=== PATIENT | male | born 1945 | race Caucasian/White ===

== ENCOUNTER 2019-02-03 09:58 | Day surgery (SDC) | payer BC, MEDICARE ==
[~2019-02-03 09:58] MED LIST: ALPR0.5T8 PO; AMLO1CAP9 PO; AMLO5TAB PO; ASPI-611 PO; CALC0.253 PO; CARV25TA PO; CHOL5000 PO; CLOP75TA33 PO; CYCL-1 PO; FE F PO; FENO145T38 PO; FLO0.4C PO; FURO40TA4 PO; HYDR-4353 PO; LANTUS SQ; SIMV40TA PO
== END 2019-02-03 12:08 | disposition home or self-care (01) ==
LOC: WOUND CARE 09:58
PROVIDERS: ATTEND Surgery
DX: T87.89 Other complications of amputation stump (principal); E11.621 Type 2 diabetes mellitus with foot ulcer; L97.521 Non-pressure chronic ulcer of other part of left foot limited to breakdown of skin; I25.10 Atherosclerotic heart disease of native coronary artery without angina pectoris; I25.2 Old myocardial infarction; E11.69 Type 2 diabetes mellitus with other specified complication; M86.8X7 Other osteomyelitis, ankle and foot; E11.42 Type 2 diabetes mellitus with diabetic polyneuropathy; E11.22 Type 2 diabetes mellitus with diabetic chronic kidney disease; I12.9 Hypertensive chronic kidney disease with stage 1 through stage 4 chronic kidney disease, or unspecified chronic kidney disease; N18.4 Chronic kidney disease, stage 4 (severe); Z86.73 Personal history of transient ischemic attack (TIA), and cerebral infarction without residual deficits; Z95.1 Presence of aortocoronary bypass graft; Y83.5 Amputation of limb(s) as the cause of abnormal reaction of the patient, or of later complication, without mention of misadventure at the time of the procedure
CPT/HCPCS: 36416; 82948; 97597; A6222; A6021; A6206

== ENCOUNTER 2019-02-26 10:30 | Outpatient (CLI) | payer BC, MEDICARE ==
--- NOTE | 2019-02-26 12:00 | NUR ---
Patient ambulated independently from [facility] and was admitted to outpatient wound care for physician visit with Francisco Hopkins MD. Dressing removed, wound cleansed. Patient assessed for changes in condition or medical history. 1120 - Dr. Hopkins at bedside accompanied by RN. Wound assessed by and is declared healed. Plan of care discussed with patient. Dressings placed per MD orders. Patient discharged from the wound clinic to follow up on an as needed basis. Patient instructed on the signs and symptoms of infection and to call the Wound Center if any occur or to go to the ED if we are closed: Increased pain in wound Increase in drainage from the wound Redness in the skin surrounding the wound Bleeding from the wound Temperature of 101 or greater Patient instructed that the weight of their body puts a large amount of pressure on their wounds. This pressure keeps the new tissue from growing and inhibits new blood vessels from forming. Explained that, if they continue to bear weight on a body part that has a wound, the time it takes to heal the wound increases, the wound may get worse or the wound may not heal at all. Patient verbalized understanding of all discharge instructions and plan of care and ambulated independently out to [facility] in stable condition with no sign or symptom of distress at time of discharge.
== END 2019-02-26 11:27 | disposition home or self-care (01) ==
LOC: WOUND CARE 10:30 → EDSTATUS 10:30 → WOUND CARE 11:27
PROVIDERS: ATTEND Surgery
DX: E11.621 Type 2 diabetes mellitus with foot ulcer (principal); L97.522 Non-pressure chronic ulcer of other part of left foot with fat layer exposed; I25.10 Atherosclerotic heart disease of native coronary artery without angina pectoris; I25.2 Old myocardial infarction; E11.69 Type 2 diabetes mellitus with other specified complication; M86.8X7 Other osteomyelitis, ankle and foot; E11.42 Type 2 diabetes mellitus with diabetic polyneuropathy; E11.22 Type 2 diabetes mellitus with diabetic chronic kidney disease; I12.9 Hypertensive chronic kidney disease with stage 1 through stage 4 chronic kidney disease, or unspecified chronic kidney disease; N18.4 Chronic kidney disease, stage 4 (severe); Z86.73 Personal history of transient ischemic attack (TIA), and cerebral infarction without residual deficits; Z95.1 Presence of aortocoronary bypass graft
CPT/HCPCS: A4414; G0463

== ENCOUNTER 2019-08-26 19:42 | Emergency (ER) | payer BC, MEDICARE ==
[~2019-08-26] VITALS: Ht 177.8 cm; Wt 90.0 kg
[~2019-08-26 19:42] MED LIST changes: +AMLO-101 PO; -AMLO1CAP9 PO
[2019-08-26 20:03] VITALS: BP 154/78
--- NOTE | 2019-08-26 20:11 | NUR ---
AFTER PATIENT SAW HIS VITALS, THE PATIENT STATED HE WANTED TO GO HOME AND RETURN IF HE HAD ANY MORE PROBLEMS. NAD ACUT DISTRESS. PATIENT WAS ADVISED THAT WE ARE MORE THAN HAPPY TO SEE HIM.
== END 2019-08-26 20:55 | disposition left against medical advice (07) ==
LOC: ER 19:43
DX: R10.30 Lower abdominal pain, unspecified (principal); Z53.21 Procedure and treatment not carried out due to patient leaving prior to being seen by health care provider

== ENCOUNTER 2020-02-15 00:26 | Emergency (ER) | payer BC, MEDICARE ==
[~2020-02-15] VITALS: Ht 177.8 cm; Wt 90.0 kg
[2020-02-15] MEDS ORDERED: TETanus/Pertussis (Acell)/Diphther VAC/PF (Tdap-Adult) 0.5ml syringe IMVAC ONE (00:30)
[2020-02-15] MEDS ORDERED: LIDOcaine 1% W/epiNEPHrine 1:200,000 10ml vial IJ ONE (00:30)
[2020-02-15 00:45] VITALS: BP 146/69
== END 2020-02-15 02:56 | disposition home or self-care (01) ==
LOC: ER 00:26
DX: S01.81XA Laceration without foreign body of other part of head, initial encounter (principal); S06.0X0A Concussion without loss of consciousness, initial encounter; I25.10 Atherosclerotic heart disease of native coronary artery without angina pectoris; I10 Essential (primary) hypertension; I25.2 Old myocardial infarction; E11.9 Type 2 diabetes mellitus without complications; G89.29 Other chronic pain; Z98.61 Coronary angioplasty status; Z95.1 Presence of aortocoronary bypass graft; Z98.890 Other specified postprocedural states; Z91.041 Radiographic dye allergy status; Z79.82 Long term (current) use of aspirin; Z79.4 Long term (current) use of insulin; Z79.899 Other long term (current) drug therapy; W19.XXXA Unspecified fall, initial encounter; Y93.89 Activity, other specified; Y92.89 Other specified places as the place of occurrence of the external cause; Y99.8 Other external cause status
CPT/HCPCS: 12013; 70450; 70486; 72125; 90471; 90715; 99285

== ENCOUNTER 2020-02-17 10:27 | Inpatient (IN) | payer MEDICARE, BC ==
--- NOTE | 2020-02-16 18:00 | NUR ---
Patient in room PCU 3023. I have received report from Bianca NESS and had the opportunity to ask questions and assume patient care.
[~2020-02-17] VITALS: Ht 177.8 cm; Wt 95.6 kg
[2020-02-17] MEDS: clopidogrel 75mg tablet PO SCH (08:00)
[2020-02-17 10:57] LABS: BASOPHILS % (AUTO) 0.7 % (0-1); EOSINOPHILS % (AUTO) 0.5 % (0-6); HEMATOCRIT 33.8 % (42.0-52.0); HEMOGLOBIN 10.9 g/dl (14.0-17.9); LYMPHOCYTES # (AUTO) 0.3 X10'3 (1.1-4.8); LYMPHOCYTES % (AUTO) 5.1 % (21-51); MEAN CORPUSCULAR HEMOGLOBIN 31.8 PG (27.0-31.0); MEAN CORPUSCULAR HGB CONC 32.3 g/dL (33.0-36.5); MEAN CORPUSCULAR VOLUME 98.3 FL (78-98); MEAN PLATELET VOLUME 7.5 FL (7.4-10.4); MONOCYTES # (AUTO) 0.6 X10'3 (0-0.9); MONOCYTES % (AUTO) 9.4 % (2-12); NEUTROPHILS # (AUTO) 5.8 X10'3 (1.8-7.7); NEUTROPHILS % (AUTO) 84.3 % (42-75); PLATELET COUNT 237 X10'3 (140-440); RED BLOOD COUNT 3.44 X10'6 (4.70-6.10); RED CELL DISTRIBUTION WIDTH 16.3 % (11.5-14.5); WHITE BLOOD COUNT 6.9 X10'3 (4.5-11.0)
[2020-02-17 11:06] LABS: PARTIAL THROMBOPLASTIN TIME 36 SECONDS (22-32)
[2020-02-17 11:07] LABS: ALANINE AMINOTRANSFERASE 16 U/L (12-78); ALBUMIN 3.8 G/DL (3.4-5.0); ALKALINE PHOSPHATASE 42 IU/L (46-116); ANION GAP 7 (8-16); ASPARTATE AMINO TRANSFERASE 26 U/L (10-37); BILIRUBIN,TOTAL 0.5 MG/DL (0.1-1.0); BLOOD UREA NITROGEN 23 MG/DL (7-18); BUN/CREATININE RATIO 6.9 (5.4-32.0); CALCIUM 8.8 MG/DL (8.5-10.1); CHLORIDE 97 MMOL/L (99-107); CREATININE 3.35 MG/DL (0.60-1.10); GLUCOSE 147 MG/DL (70-104); POTASSIUM 4.7 MMOL/L (3.5-5.1); SODIUM 136 MMOL/L (135-145); TOTAL CARBON DIOXIDE 31.8 MMOL/L (24-32); TOTAL PROTEIN 7.5 G/DL (6.4-8.2); eGFR 18 ML/MIN
[2020-02-17] MEDS ORDERED: ondansetron/PF 4mg/2ml inj IV PRN (12:20)
[2020-02-17] MEDS ORDERED: bisacodyl 10mg suppository rectal RC PRN (12:20)
[2020-02-17] MEDS ORDERED: acetaminophen 325mg tablet PO PRN (12:20)
[2020-02-17] MEDS ORDERED: diphenhydrAMINE 25mg capsule PO PRN (12:20)
[2020-02-17] MEDS ORDERED: CALC667C5 PO (12:30)
[2020-02-17] MEDS ORDERED: OMEG10006 PO (12:34)
[2020-02-17] MEDS ORDERED: FURO-150 PO (12:35)
[2020-02-17] MEDS ORDERED: CITA10TA14 PO (12:52)
[2020-02-17] MEDS ORDERED: LIDO700A47 TD (12:52)
[2020-02-17] MEDS ORDERED: ALBU2.5V10 IH (12:54)
[2020-02-17] MEDS ORDERED: FLUT12AE9 IH (12:54)
[2020-02-17] MEDS ORDERED: INSU100I31 SQ (12:54)
[2020-02-17] MEDS ORDERED: TRAZ-251 PO (12:54)
--- NOTE | 2020-02-17 13:23 | NUR ---
Pt attempted to obtain a urine sample. Pt was not able to at this time. Pt states, "I don't make a lot of urine because of my dialysis and since I just had it, it will take a little bit to make urine."
--- NOTE | 2020-02-17 14:00 | NUR ---
Left a message for Dr Morneo to call the ED regarding the pt.
[2020-02-17] MEDS ORDERED: albuterol 2.5 MG/3 ML nebule NEB PRN (14:10)
--- NOTE | 2020-02-17 14:40 | NUR ---
Spoke with Dr Moreno regarding pt unable to lie flat for VQ scan. He said we will hold it for now until we get more tests back. Nucular med is aware.
[2020-02-17 16:44] VITALS: BP 135/78
[2020-02-17 18:00] VITALS: BP 120/60
--- NOTE | 2020-02-17 18:29 | NUR ---
Problems reprioritized. Patient report given, questions answered & plan of care reviewed with Braden RN].
[2020-02-17] MEDS: amLODIPine 5mg tablet PO SCH (19:41)
[2020-02-17] MEDS: tamsulosin 0.4mg capsule PO SCH (19:41)
[2020-02-17] MEDS: docusate sod 100mg capsule PO SCH (19:41)
[2020-02-17] MEDS: carVEDilol 12.5mg tablet PO SCH (19:41)
[2020-02-17] MEDS: calcium acetate 667mg (PhosLO) capsule PO SCH (19:41)
[2020-02-17] MEDS: heparin, porcine 5000 units/ml vial SQ SCH (19:42)
[2020-02-17] MEDS ORDERED: non-formulary drug (Amlodipine Besylate/Benazepril (Amlodipine-Benazepril 5-20 mg) 1 CAP) PO SCH (20:00)
[2020-02-17] MEDS: insulin glargine (Lantus) pen - multi-dose SQ SCH (21:00)
[2020-02-17] MEDS: acetaminophen 325mg tablet PO PRN (21:40)
[2020-02-17] MEDS: fluticasone nasal spray 16GM bottle NS SCH (21:41)
[2020-02-17 22:00] VITALS: BP 138/57
--- NOTE | 2020-02-18 00:02 | NUR ---
Non administered Plavix dose from yesterday morning. Unaware if patient had received the dose or not.
[2020-02-18 02:00] VITALS: BP 139/56
[2020-02-18 06:06] LABS: BASOPHILS # (AUTO) 0.1 X10'3 (0-0.2); BASOPHILS % (AUTO) 0.9 % (0-1); EOSINOPHILS # (AUTO) 0.1 X10'3 (0-0.9); EOSINOPHILS % (AUTO) 1.3 % (0-6); HEMATOCRIT 33.9 % (42.0-52.0); HEMOGLOBIN 10.6 g/dl (14.0-17.9); LYMPHOCYTES # (AUTO) 0.3 X10'3 (1.1-4.8); LYMPHOCYTES % (AUTO) 5.6 % (21-51); MEAN CORPUSCULAR HEMOGLOBIN 30.7 PG (27.0-31.0); MEAN CORPUSCULAR HGB CONC 31.4 g/dL (33.0-36.5); MEAN CORPUSCULAR VOLUME 97.6 FL (78-98); MEAN PLATELET VOLUME 7.7 FL (7.4-10.4); MONOCYTES # (AUTO) 0.7 X10'3 (0-0.9); MONOCYTES % (AUTO) 11.4 % (2-12); NEUTROPHILS # (AUTO) 4.8 X10'3 (1.8-7.7); NEUTROPHILS % (AUTO) 80.8 % (42-75); PLATELET COUNT 221 X10'3 (140-440); RED BLOOD COUNT 3.47 X10'6 (4.70-6.10); RED CELL DISTRIBUTION WIDTH 16.3 % (11.5-14.5); WHITE BLOOD COUNT 5.9 X10'3 (4.5-11.0)
[2020-02-18 06:17] LABS: ALANINE AMINOTRANSFERASE 12 U/L (12-78); ALBUMIN 3.7 G/DL (3.4-5.0); ALBUMIN/GLOBULIN RATIO 1.1 (1.1-1.5); ALKALINE PHOSPHATASE 35 IU/L (46-116); ANION GAP 7 (8-16); ASPARTATE AMINO TRANSFERASE 22 U/L (10-37); BILIRUBIN,TOTAL 0.5 MG/DL (0.1-1.0); BLOOD UREA NITROGEN 34 MG/DL (7-18); BUN/CREATININE RATIO 6.9 (5.4-32.0); CHLORIDE 95 MMOL/L (99-107); CREATININE 4.92 MG/DL (0.60-1.10); GLUCOSE 126 MG/DL (70-104); MAGNESIUM 2.3 MG/DL (1.5-2.4); POTASSIUM 5.1 MMOL/L (3.5-5.1); SODIUM 131 MMOL/L (135-145); TOTAL CARBON DIOXIDE 29.4 MMOL/L (24-32); TOTAL PROTEIN 7.2 G/DL (6.4-8.2); eGFR 12 ML/MIN
--- NOTE | 2020-02-18 06:26 | NUR ---
Problems reprioritized. Patient report given, questions answered & plan of care reviewed with Cristine NESS.
--- NOTE | 2020-02-18 06:37 | NUR ---
Patient in room PCU 3023. I have received report from GROVER Feliciano and had the opportunity to ask questions and assume patient care.
[2020-02-18 07:00] VITALS: BP 126/46
[2020-02-18] MEDS: fluticasone nasal spray 16GM bottle NS SCH ×2 (08:13→19:59)
[2020-02-18] MEDS: docusate sod 100mg capsule PO SCH ×2 (08:13→20:00)
[2020-02-18] MEDS: OMEGA-3/DHA/EPA/FISH OIL 1 EACH CAPSULE.DR PO SCH (08:13)
[2020-02-18] MEDS: heparin, porcine 5000 units/ml vial SQ SCH ×2 (08:13→19:59)
[2020-02-18] MEDS: clopidogrel 75mg tablet PO SCH (08:14)
[2020-02-18] MEDS: carVEDilol 12.5mg tablet PO SCH ×2 (08:14→19:59)
[2020-02-18] MEDS: atorvastatin 20mg tablet PO SCH (08:14)
[2020-02-18] MEDS: calcium acetate 667mg (PhosLO) capsule PO SCH ×3 (08:15→18:05)
[2020-02-18] MEDS: aspirin 81mg tablet.DR PO SCH (08:15)
[2020-02-18] MEDS: furosemide 20MG tablet PO SCH (08:15)
[2020-02-18] MEDS: fenofibrate 145mg tablet PO SCH (08:15)
[2020-02-18] MEDS: amLODIPine 5mg tablet PO SCH ×2 (08:15→20:00)
[2020-02-18] MEDS: tamsulosin 0.4mg capsule PO SCH ×2 (08:16→19:59)
[2020-02-18 09:14] LABS: CLARITY,URINE SLIGHTLY CLOUDY (Clear); COLOR,URINE YELLOW (Yellow); GLUCOSE, URINE NEGATIVE (Neg); KETONES,URINE TRACE mg/dl (Neg); LEUKOCYTE ESTERASE ,URINE NEGATIVE (Neg); NITRITES, URINE NEGATIVE (Neg); OCCULT BLOOD,URINE NEGATIVE (Neg); PROTEIN,URINE 100 mg/dl (Neg); UROBILINOGEN,URINE 0.2 E.U/dL (0.2-1.0)
[2020-02-18 09:15] LABS: UA COLLECTION TYPE VOIDED
[2020-02-18 09:17] LABS: MUCUS STRANDS FEW /LPF (Neg); SQUAMOUS EPITHELIAL CELL,UR FEW /LPF (FEW)
[2020-02-18 09:18] LABS: WBC,URINE 0-4 /HPF (0-4)
[2020-02-18 09:19] LABS: BACTERIA,URINE 2+ /HPF (Neg)
[2020-02-18 09:20] LABS: COARSE GRANULAR CAST 0-3 /LPF (NEGATIVE); RBC,URINE 0-2 /HPF (0-2); TRANSITIONAL EPI CELLS,URINE FEW /HPF
[2020-02-18 11:00] VITALS: BP 135/49
--- NOTE | 2020-02-18 15:43 | NUR ---
Awaiting results from Nikhil PAGER ID: [phone] MESSAGE: Patient Dar Chavez9. UA results are in. Cristine LOUIS [phone] Addendum: 02/18/20 at 1657 by Cristine Fuentes RN in error
[2020-02-18] MEDS: acetaminophen 325mg tablet PO PRN (16:55)
--- NOTE | 2020-02-18 16:57 | NUR ---
O2 Sat at rest on room air:_87__% If below 89%: Recovery O2 Sat at rest on _2 __LPM:_96__%:___% via nasal cannula (mask/nasal cannula, etc..) No further documentation is necessary. If O2 Sat did not drop below 89% on room air,ambulate patient on room air. O2 Sat while ambulating on room air:___% Recovery O2 Sat while ambulating on ___LPM:___% No further documentation is necessary. If patient does not drop below 89% while ambulating, he/she does not qualify for home O2.
[2020-02-18] MEDS: HYDROcodone/acetaminophen 10/325mg tab PO PRN (18:06)
--- NOTE | 2020-02-18 18:41 | NUR ---
Problems reprioritized. Patient report given, questions answered & plan of care reviewed with Chelly NESS. Patient stable at transfer of care.
[2020-02-18 20:02] VITALS: BP 146/54
[2020-02-18] MEDS ORDERED: MESSAGE TO PHARMACY PO ONE (21:40)
[2020-02-18] MEDS ORDERED: insulin Lispro (HumaLOG) vial - multi-dose SQ SCH (21:40)
[2020-02-18] MEDS ORDERED: glucagon, human recombinant 1mg kit SUBCUT PRN (21:40)
[2020-02-18] MEDS ORDERED: dextrose 50%-water 50ml dispensing syringe IV PRN ×2 (21:40)
[2020-02-18] MEDS ORDERED: dextrose ORAL solution 15 GM/59 ML bottle PO PRN ×2 (21:40)
[2020-02-18] MEDS: insulin glargine (Lantus) pen - multi-dose SQ SCH (21:51)
[2020-02-18 22:00] VITALS: BP 137/53
[2020-02-18 22:25] LABS: HEMOGLOBIN A1C 6.6 % (4.5-6.2)
[2020-02-19] VITALS (7 sets, daily range): BP systolic 119–152; BP diastolic 53–82
[2020-02-19 06:11] LABS: ALANINE AMINOTRANSFERASE 15 U/L (12-78); ALBUMIN 3.7 G/DL (3.4-5.0); ALKALINE PHOSPHATASE 42 IU/L (46-116); ANION GAP 5 (8-16); ASPARTATE AMINO TRANSFERASE 18 U/L (10-37); BASOPHILS % (AUTO) 0.7 % (0-1); BILIRUBIN,TOTAL 0.4 MG/DL (0.1-1.0); BLOOD UREA NITROGEN 45 MG/DL (7-18); BUN/CREATININE RATIO 7.7 (5.4-32.0); CALCIUM 9.2 MG/DL (8.5-10.1); CHLORIDE 95 MMOL/L (99-107); CREATININE 5.88 MG/DL (0.60-1.10); EOSINOPHILS # (AUTO) 0.1 X10'3 (0-0.9); EOSINOPHILS % (AUTO) 1.9 % (0-6); GLUCOSE 122 MG/DL (70-104); HEMATOCRIT 34.4 % (42.0-52.0); HEMOGLOBIN 10.9 g/dl (14.0-17.9); LYMPHOCYTES # (AUTO) 0.3 X10'3 (1.1-4.8); LYMPHOCYTES % (AUTO) 6.7 % (21-51); MAGNESIUM 2.5 MG/DL (1.5-2.4); MEAN CORPUSCULAR HEMOGLOBIN 30.5 PG (27.0-31.0); MEAN CORPUSCULAR HGB CONC 31.6 g/dL (33.0-36.5); MEAN CORPUSCULAR VOLUME 96.5 FL (78-98); MEAN PLATELET VOLUME 7.4 FL (7.4-10.4); MONOCYTES # (AUTO) 0.6 X10'3 (0-0.9); MONOCYTES % (AUTO) 11.7 % (2-12); PHOSPHORUS 5.5 MG/DL (2.3-4.5); PLATELET COUNT 213 X10'3 (140-440); POTASSIUM 4.8 MMOL/L (3.5-5.1); RED BLOOD COUNT 3.57 X10'6 (4.70-6.10); RED CELL DISTRIBUTION WIDTH 16.1 % (11.5-14.5); SODIUM 130 MMOL/L (135-145); TOTAL CARBON DIOXIDE 30.2 MMOL/L (24-32); TOTAL PROTEIN 7.3 G/DL (6.4-8.2); WHITE BLOOD COUNT 5.1 X10'3 (4.5-11.0); eGFR 9 ML/MIN
--- NOTE | 2020-02-19 06:25 | NUR ---
Patient in room PCU 3023. I have received report from GROVER Spaulding and had the opportunity to ask questions and assume patient care.
--- NOTE | 2020-02-19 06:27 | NUR ---
Problems reprioritized. Patient report given, questions answered & plan of care reviewed with GROVER Vergara.
[2020-02-19] MEDS: carVEDilol 12.5mg tablet PO SCH ×2 (07:43→19:23)
[2020-02-19] MEDS: fenofibrate 145mg tablet PO SCH (07:43)
[2020-02-19] MEDS: clopidogrel 75mg tablet PO SCH (07:43)
[2020-02-19] MEDS: aspirin 81mg tablet.DR PO SCH (07:43)
[2020-02-19] MEDS: OMEGA-3/DHA/EPA/FISH OIL 1 EACH CAPSULE.DR PO SCH (07:43)
[2020-02-19] MEDS: tamsulosin 0.4mg capsule PO SCH ×2 (07:44→19:30)
[2020-02-19] MEDS: amLODIPine 5mg tablet PO SCH ×2 (07:44→19:24)
[2020-02-19] MEDS: atorvastatin 20mg tablet PO SCH (07:44)
[2020-02-19] MEDS: furosemide 20MG tablet PO SCH (07:44)
[2020-02-19] MEDS: calcium acetate 667mg (PhosLO) capsule PO SCH ×3 (07:44→19:00)
[2020-02-19] MEDS: fluticasone nasal spray 16GM bottle NS SCH ×2 (07:45→19:30)
[2020-02-19] MEDS ORDERED: normal saline 1000ml 250 ML IV PRN (08:00)
[2020-02-19] MEDS ORDERED: heparin 1,000 units/ml 10ml inj IV ONE (08:00)
[2020-02-19] MEDS ORDERED: epoetin 20,000 units/ml inj IV ONE (08:00)
[2020-02-19] MEDS ORDERED: LIDOcaine 1% (10mg/ml) 2ml vial SQ ONE (08:00)
[2020-02-19] MEDS: docusate sod 100mg capsule PO SCH ×2 (08:07→19:23)
--- NOTE | 2020-02-19 08:08 | NUR ---
Administered colace but did not scan medication bar code.
--- NOTE | 2020-02-19 18:04 | NUR ---
Problems reprioritized. Patient report given, questions answered & plan of care reviewed with GROVER Spaulding.
[2020-02-19] MEDS: HYDROcodone/acetaminophen 10/325mg tab PO PRN (19:34)
--- NOTE | 2020-02-19 20:03 | NUR ---
Pt is stable to be discharge per MD. Pt is stable. VS : 144/54, 77 bpm, 91% O2 sat RA, 20 respiration. All belongings were with the pt. Tele monitor and IV access were discontinued. Pt was wheeled down to the lobby by staff, and he was picked up by his brother.
== END 2020-02-19 20:05 | disposition home or self-care (01) | DRG 70 ==
LOC: ER 10:28 → ED HOLD 12:25 → PCU 3S 16:35
PROC: CB121ZZ Planar Nuclear Medicine Imaging of Lungs and Bronchi using Technetium 99m (Tc-99m) (ICD-10-PCS; 2020-02-18)
PROC: 5A1D70Z Performance of Urinary Filtration, Intermittent, Less than 6 Hours Per Day (ICD-10-PCS; principal; 2020-02-19)
DX: G93.41 Metabolic encephalopathy (principal); N18.6 End stage renal disease; N25.81 Secondary hyperparathyroidism of renal origin; I12.0 Hypertensive chronic kidney disease with stage 5 chronic kidney disease or end stage renal disease; R09.02 Hypoxemia; E11.22 Type 2 diabetes mellitus with diabetic chronic kidney disease; D64.9 Anemia, unspecified; G89.29 Other chronic pain; M54.9 Dorsalgia, unspecified; E78.5 Hyperlipidemia, unspecified; I25.10 Atherosclerotic heart disease of native coronary artery without angina pectoris; I27.20 Pulmonary hypertension, unspecified; R29.6 Repeated falls; Z79.51 Long term (current) use of inhaled steroids; Z79.82 Long term (current) use of aspirin; I25.2 Old myocardial infarction; Z79.899 Other long term (current) drug therapy; Z86.73 Personal history of transient ischemic attack (TIA), and cerebral infarction without residual deficits; Z87.891 Personal history of nicotine dependence; Z95.1 Presence of aortocoronary bypass graft; Z99.2 Dependence on renal dialysis; Z91.041 Radiographic dye allergy status; Z79.01 Long term (current) use of anticoagulants; Z79.1 Long term (current) use of non-steroidal anti-inflammatories (NSAID); Z80.9 Family history of malignant neoplasm, unspecified; Z79.4 Long term (current) use of insulin
CPT/HCPCS: 36415; 70450; 71045; 78582; 78707; 80053; 81001; 82948; 83036; 83735; 83880; 84100; 85025; 85379; 85610; 85730; 87081; 93005; 93306; 93970; 94760; 97110; 97161; 97530; 99285; A9539; A9540; A9562; G0378; J1644; J1815; Q4081

== ENCOUNTER 2020-03-03 14:13 | Emergency (ER) | payer MEDICARE, BC ==
[~2020-03-03] VITALS: Ht 177.8 cm; Wt 90.9 kg
[~2020-03-03 14:13] MED LIST changes: +ALBU2.5V10 IH; -ALPR0.5T8 PO; -AMLO5TAB PO; -CALC0.253 PO; +CALC667C5 PO; -CHOL5000 PO; -CYCL-1 PO; -FE F PO; +FLUT12AE9 IH; +FURO-150 PO; -FURO40TA4 PO; +INSU100I31 SQ; -LANTUS SQ; +LIDO700A47 TD; +OMEG10006 PO
[2020-03-03 14:17] VITALS: BP 142/59
== END 2020-03-03 17:03 | disposition home or self-care (01) ==
LOC: ER 14:13
DX: N43.3 Hydrocele, unspecified (principal); N50.89 Other specified disorders of the male genital organs; N48.89 Other specified disorders of penis; I25.10 Atherosclerotic heart disease of native coronary artery without angina pectoris; I25.2 Old myocardial infarction; I12.0 Hypertensive chronic kidney disease with stage 5 chronic kidney disease or end stage renal disease; E11.22 Type 2 diabetes mellitus with diabetic chronic kidney disease; N18.6 End stage renal disease; Z86.73 Personal history of transient ischemic attack (TIA), and cerebral infarction without residual deficits; Z86.2 Personal history of diseases of the blood and blood-forming organs and certain disorders involving the immune mechanism; Z99.2 Dependence on renal dialysis; G89.29 Other chronic pain; Z98.890 Other specified postprocedural states; Z88.8 Allergy status to other drugs, medicaments and biological substances; Z79.82 Long term (current) use of aspirin; Z79.4 Long term (current) use of insulin; Z79.899 Other long term (current) drug therapy
CPT/HCPCS: 76870; 99284

== ENCOUNTER 2020-03-08 10:08 | Day surgery (SDC) | payer MEDICARE, BC ==
[2020-03-08] MEDS ORDERED: LIDOcaine 2% 5ml jelly ONE (10:36)
== END 2020-03-08 11:45 | disposition home or self-care (01) ==
LOC: WOUND CARE 10:08
PROVIDERS: ATTEND Nurse Practitioner
DX: E11.621 Type 2 diabetes mellitus with foot ulcer (principal); L97.512 Non-pressure chronic ulcer of other part of right foot with fat layer exposed; I25.10 Atherosclerotic heart disease of native coronary artery without angina pectoris; I25.2 Old myocardial infarction; E11.69 Type 2 diabetes mellitus with other specified complication; M86.8X7 Other osteomyelitis, ankle and foot; E11.42 Type 2 diabetes mellitus with diabetic polyneuropathy; E11.22 Type 2 diabetes mellitus with diabetic chronic kidney disease; I12.0 Hypertensive chronic kidney disease with stage 5 chronic kidney disease or end stage renal disease; N18.6 End stage renal disease; G89.29 Other chronic pain; M54.9 Dorsalgia, unspecified; E78.5 Hyperlipidemia, unspecified; N25.81 Secondary hyperparathyroidism of renal origin; Z86.73 Personal history of transient ischemic attack (TIA), and cerebral infarction without residual deficits; Z95.1 Presence of aortocoronary bypass graft; Z99.2 Dependence on renal dialysis; Z79.4 Long term (current) use of insulin; Z79.82 Long term (current) use of aspirin; Z79.899 Other long term (current) drug therapy; Z98.890 Other specified postprocedural states; Z86.2 Personal history of diseases of the blood and blood-forming organs and certain disorders involving the immune mechanism; Z79.01 Long term (current) use of anticoagulants; Z79.51 Long term (current) use of inhaled steroids; Z79.1 Long term (current) use of non-steroidal anti-inflammatories (NSAID); Z87.891 Personal history of nicotine dependence; Z98.61 Coronary angioplasty status
CPT/HCPCS: 36416; 73620; 82948; 87070; 87075; 87077; 87102; 87186; 97597

== ENCOUNTER 2020-03-12 09:40 | Day surgery (SDC) | payer BC, MEDICARE | END 2020-03-12 11:57 | disposition home or self-care (01) | LOC: WOUND CARE 09:40 | PROVIDERS: ATTEND Nurse Practitioner | DX: E11.621 Type 2 diabetes mellitus with foot ulcer (principal); L97.512 Non-pressure chronic ulcer of other part of right foot with fat layer exposed; I25.10 Atherosclerotic heart disease of native coronary artery without angina pectoris; I25.2 Old myocardial infarction; E11.69 Type 2 diabetes mellitus with other specified complication; M86.8X7 Other osteomyelitis, ankle and foot; E11.42 Type 2 diabetes mellitus with diabetic polyneuropathy; E11.22 Type 2 diabetes mellitus with diabetic chronic kidney disease; I12.0 Hypertensive chronic kidney disease with stage 5 chronic kidney disease or end stage renal disease; N18.6 End stage renal disease; G89.29 Other chronic pain; M54.9 Dorsalgia, unspecified; E78.5 Hyperlipidemia, unspecified; N25.81 Secondary hyperparathyroidism of renal origin; Z86.73 Personal history of transient ischemic attack (TIA), and cerebral infarction without residual deficits; Z95.1 Presence of aortocoronary bypass graft; Z99.2 Dependence on renal dialysis; Z79.4 Long term (current) use of insulin; Z79.82 Long term (current) use of aspirin; Z79.899 Other long term (current) drug therapy; Z98.890 Other specified postprocedural states; Z86.2 Personal history of diseases of the blood and blood-forming organs and certain disorders involving the immune mechanism; Z79.01 Long term (current) use of anticoagulants; Z79.51 Long term (current) use of inhaled steroids; Z79.1 Long term (current) use of non-steroidal anti-inflammatories (NSAID); Z87.891 Personal history of nicotine dependence; Z98.61 Coronary angioplasty status | CPT/HCPCS: 36416; 82948; 93922; 93925; 97597 ==

== ENCOUNTER 2020-03-19 10:10 | Day surgery (SDC) | payer MEDICARE, BC ==
[2020-03-19] MEDS ORDERED: LIDOcaine 2% 5ml jelly ONE (10:38)
[2020-03-19 11:15] LABS: BASOPHILS # (AUTO) 0.1 X10'3 (0-0.2); EOSINOPHILS % (AUTO) 1.1 % (0-6); LYMPHOCYTES # (AUTO) 0.2 X10'3 (1.1-4.8); LYMPHOCYTES % (AUTO) 4.4 % (21-51); MEAN CORPUSCULAR HEMOGLOBIN 30.6 PG (27.0-31.0); MEAN CORPUSCULAR HGB CONC 32.1 g/dL (33.0-36.5); MEAN CORPUSCULAR VOLUME 95.2 FL (78-98); MEAN PLATELET VOLUME 7.6 FL (7.4-10.4); MONOCYTES # (AUTO) 0.5 X10'3 (0-0.9); MONOCYTES % (AUTO) 11.7 % (2-12); NEUTROPHILS # (AUTO) 3.2 X10'3 (1.8-7.7); NEUTROPHILS % (AUTO) 80.8 % (42-75); PRE OP HEMATOCRIT 35.4 % (42.0-52.0); PRE OP HEMOGLOBIN 11.4 g/dL (14.0-17.9); PRE OP PLATELET COUNT 154 X10'3 (140-440); RED BLOOD COUNT 3.72 X10'6 (4.70-6.10)
[2020-03-19 11:39] LABS: ALBUMIN 3.1 G/DL (3.4-5.0); ALBUMIN/GLOBULIN RATIO 0.9 (1.1-1.5); ALKALINE PHOSPHATASE 23 IU/L (46-116); CALCIUM 8.3 MG/DL (8.5-10.1); CHLORIDE 99 MMOL/L (99-107); PRE OP ALT 15 U/L (30-65); PRE OP ANION GAP 6 (8-16); PRE OP AST 20 U/L (10-37); PRE OP BILIRUB, TOTAL 0.5 MG/DL (0.0-1.0); PRE OP GLUCOSE 132 MG/DL (70-104); PRE OP POTASSIUM 4.3 MMOL/L (3.4-5.1); PRE OP SODIUM 136 MMOL/L (135-145); TOTAL CARBON DIOXIDE 30.7 MMOL/L (24-32); TOTAL PROTEIN 6.6 G/DL (6.4-8.2)
[2020-03-19 11:46] LABS: BLOOD UREA NITROGEN 26 MG/DL (7-18); BUN/CREATININE RATIO 5.4 (5.4-32.0); CREATININE 4.81 MG/DL (0.60-1.10); eGFR 12 ML/MIN
== END 2020-03-19 11:32 | disposition home or self-care (01) ==
LOC: WOUND CARE 10:10
PROVIDERS: ATTEND Nurse Practitioner
DX: E11.621 Type 2 diabetes mellitus with foot ulcer (principal); L97.512 Non-pressure chronic ulcer of other part of right foot with fat layer exposed; I25.10 Atherosclerotic heart disease of native coronary artery without angina pectoris; I25.2 Old myocardial infarction; E11.69 Type 2 diabetes mellitus with other specified complication; M86.8X7 Other osteomyelitis, ankle and foot; E11.42 Type 2 diabetes mellitus with diabetic polyneuropathy; E11.22 Type 2 diabetes mellitus with diabetic chronic kidney disease; I12.0 Hypertensive chronic kidney disease with stage 5 chronic kidney disease or end stage renal disease; N18.6 End stage renal disease; G89.29 Other chronic pain; M54.9 Dorsalgia, unspecified; E78.5 Hyperlipidemia, unspecified; N25.81 Secondary hyperparathyroidism of renal origin; Z86.73 Personal history of transient ischemic attack (TIA), and cerebral infarction without residual deficits; Z95.1 Presence of aortocoronary bypass graft; Z99.2 Dependence on renal dialysis; Z79.4 Long term (current) use of insulin; Z79.82 Long term (current) use of aspirin; Z79.899 Other long term (current) drug therapy; Z98.890 Other specified postprocedural states; Z86.2 Personal history of diseases of the blood and blood-forming organs and certain disorders involving the immune mechanism; Z79.01 Long term (current) use of anticoagulants; Z79.51 Long term (current) use of inhaled steroids; Z79.1 Long term (current) use of non-steroidal anti-inflammatories (NSAID); Z87.891 Personal history of nicotine dependence; Z98.61 Coronary angioplasty status
CPT/HCPCS: 36416; 80053; 82948; 85025; 93005; 97597; U0003

== ENCOUNTER 2020-03-26 09:45 | Day surgery (SDC) | payer MEDICARE, BC ==
[~2020-03-26] VITALS: Ht 177.8 cm; Wt 91.8 kg
[~2020-03-26 09:45] MED LIST changes: +DOCUMENT DATE & TIME OF BETA-BLOCKER PO ONE; +ceFAZolin 2gm in dextrose, iso 50 ML IV ONE; +famotidine 20mg tablet PO ONE; +ringers solution, lacted 1,000 ML IV SCH
[2020-03-26] MEDS ORDERED: albuterol 2.5 MG/3 ML nebule NEB ONE (11:00)
[2020-03-26] MEDS ORDERED: BUPIVAcaine/PF 2.5 mg/ml (0.25%) 30ml vial ONE (11:23)
[2020-03-26] MEDS ORDERED: bacitracin 15gm ointment TP ONE (11:23)
[2020-03-26] MEDS ORDERED: carVEDilol 12.5mg tablet PO ONE (11:40)
[2020-03-26 11:45] VITALS: BP 138/68
[2020-03-26 11:46] LABS: ISTAT CREATININE 4.9 mg/dL (0.8-1.3); ISTAT HGB 13.6 g/dl (14.0-18.0); ISTAT IONIZED CALCIUM 1.17 mmol/L (1.03-1.32); ISTAT K 4.4 mmol/L (3.5-5.1); POC BUN/CREATININE RATIO 5.7 (5.4-32.0)
[2020-03-26] MEDS ORDERED: LIDOcaine 1%/PF 5ML 10 MG/ML VIAL ONE (11:47)
[2020-03-26] MEDS ORDERED: desflurane 240ml liquid inh. IH ONE (11:47)
[2020-03-26] MEDS ORDERED: midazolam 2 mg/2 ml injection ONE (11:52)
[2020-03-26] MEDS ORDERED: fentaNYL/PF 50MCG/1 ML 2ML syringe ONE (11:52)
[2020-03-26] MEDS ORDERED: propofol inj 20 ML IV ONE (11:53)
[2020-03-26] MEDS ORDERED: ROPIVAcaine 0.5% (5mg/ml) 30ml vial ONE (13:05)
[2020-03-26 13:15] VITALS: BP 149/66
--- NOTE | 2020-03-26 13:15 | NUR ---
Received from OR via PENNY , accompanied by Anesthesiologist AJITH and report given by Anesthesiolgist. PATIENT WITH VSS. ACCUCHECK OF 97. MD CANSECO AWARE. PATIENT WITH SPLINT TO RIGHT LE THAT IS CDI. DENIES PAIN. + SENSATION TO RIGHT KNEE AREA BUT DENIES PAIN TO RIGHT LE. GATCHED FOOT OF PENNY. Addendum: 03/26/20 at 1322 by Jay Jay Sigala RN, RN Amended: Links added.
[2020-03-26 13:25] VITALS: BP 141/61
[2020-03-26 13:35] VITALS: BP 144/67
[2020-03-26 13:45] VITALS: BP 142/61
[2020-03-26 13:55] VITALS: BP 140/59
--- NOTE | 2020-03-26 15:12 | NUR ---
I HAVE REVIEWED D/C INSTRUCTIONS WITH PATIENT AND FAMILY AND THEY HAVE VERBALIZED UNDERSTANDING. PATIENT D/C HOME WITH ALL BELONGINGS AND FAMILY GAVE TRANSPORT HOME. PATIENT INSTRUCTED ON NON WEIGHT BEARING TO RIGHT LE. PATIENT TRANSFERED TO VEHICLE BUT WAS UNABLE TO MAINTAIN NON WEIGHT BEARING STATUS. MD Nieves HERRERA AWARE OF THIS AND AND WAS ADVISED. Addendum: 03/26/20 at 1513 by Jay Jay Sigala RN, RN Amended: Links added.
== END 2020-03-26 14:05 | disposition home or self-care (01) ==
LOC: PAS 09:45
PROVIDERS: ATTEND Podiatrist Foot & Ankle Surgery
DX: E11.621 Type 2 diabetes mellitus with foot ulcer (principal); L97.512 Non-pressure chronic ulcer of other part of right foot with fat layer exposed; I25.10 Atherosclerotic heart disease of native coronary artery without angina pectoris; I25.2 Old myocardial infarction; D64.89 Other specified anemias; J44.9 Chronic obstructive pulmonary disease, unspecified; E11.40 Type 2 diabetes mellitus with diabetic neuropathy, unspecified; E11.22 Type 2 diabetes mellitus with diabetic chronic kidney disease; I12.0 Hypertensive chronic kidney disease with stage 5 chronic kidney disease or end stage renal disease; N18.4 Chronic kidney disease, stage 4 (severe); I27.20 Pulmonary hypertension, unspecified; Z95.1 Presence of aortocoronary bypass graft; Z86.73 Personal history of transient ischemic attack (TIA), and cerebral infarction without residual deficits; G89.18 Other acute postprocedural pain; Z79.899 Other long term (current) drug therapy; Z87.891 Personal history of nicotine dependence; Z88.8 Allergy status to other drugs, medicaments and biological substances
CPT/HCPCS: 28805; 64450; 80047; 82948; 94640; 94760; A6223; J2250; J2704; J3010; J3490; J7120; A4618; A6253; A6449; A7000; J2795

== ENCOUNTER 2020-03-26 16:42 | Emergency (ER) | payer MEDICARE, BC ==
[~2020-03-26] VITALS: Ht 177.8 cm; Wt 91.8 kg
[~2020-03-26 16:42] MED LIST changes: -DOCUMENT DATE & TIME OF BETA-BLOCKER PO ONE; -ceFAZolin 2gm in dextrose, iso 50 ML IV ONE; -famotidine 20mg tablet PO ONE; -ringers solution, lacted 1,000 ML IV SCH
[2020-03-26 17:45] LABS: ALBUMIN 3.3 G/DL (3.4-5.0); ANION GAP 9 (8-16); BLOOD UREA NITROGEN 32 MG/DL (7-18); BUN/CREATININE RATIO 6.1 (5.4-32.0); CALCIUM 8.6 MG/DL (8.5-10.1); CHLORIDE 100 MMOL/L (99-107); CREATININE 5.22 MG/DL (0.60-1.10); GLUCOSE 125 MG/DL (70-104); POTASSIUM 4.8 MMOL/L (3.5-5.1); SODIUM 137 MMOL/L (135-145); TOTAL CARBON DIOXIDE 28.5 MMOL/L (24-32); eGFR 11 ML/MIN
[2020-03-26 17:47] LABS: BASOPHILS % (AUTO) 0.7 % (0-1); EOSINOPHILS % (AUTO) 0.3 % (0-6); HEMATOCRIT 30.6 % (42.0-52.0); HEMOGLOBIN 9.9 g/dl (14.0-17.9); LYMPHOCYTES # (AUTO) 0.3 X10'3 (1.1-4.8); LYMPHOCYTES % (AUTO) 4.2 % (21-51); MEAN CORPUSCULAR HEMOGLOBIN 30.5 PG (27.0-31.0); MEAN CORPUSCULAR HGB CONC 32.4 g/dL (33.0-36.5); MEAN PLATELET VOLUME 7.7 FL (7.4-10.4); MONOCYTES # (AUTO) 0.2 X10'3 (0-0.9); MONOCYTES % (AUTO) 3.2 % (2-12); NEUTROPHILS # (AUTO) 5.6 X10'3 (1.8-7.7); NEUTROPHILS % (AUTO) 91.6 % (42-75); PLATELET COUNT 164 X10'3 (140-440); RED BLOOD COUNT 3.25 X10'6 (4.70-6.10); RED CELL DISTRIBUTION WIDTH 15.7 % (11.5-14.5); WHITE BLOOD COUNT 6.1 X10'3 (4.5-11.0)
[2020-03-26 18:02] VITALS: BP 143/59
--- NOTE | 2020-03-26 18:07 | NUR ---
Washington Cleary RN is applying a post-op shoe and giving the patient strict instructions about non-weight bearing at this time.
== END 2020-03-26 18:15 | disposition home or self-care (01) ==
LOC: ER 16:43
DX: L76.22 Postprocedural hemorrhage of skin and subcutaneous tissue following other procedure (principal); I25.10 Atherosclerotic heart disease of native coronary artery without angina pectoris; I12.9 Hypertensive chronic kidney disease with stage 1 through stage 4 chronic kidney disease, or unspecified chronic kidney disease; I25.2 Old myocardial infarction; N18.9 Chronic kidney disease, unspecified; E11.22 Type 2 diabetes mellitus with diabetic chronic kidney disease; G89.29 Other chronic pain; Z86.73 Personal history of transient ischemic attack (TIA), and cerebral infarction without residual deficits; Z98.61 Coronary angioplasty status; Z95.1 Presence of aortocoronary bypass graft; Z98.890 Other specified postprocedural states; Z91.041 Radiographic dye allergy status; Z79.82 Long term (current) use of aspirin; Z79.4 Long term (current) use of insulin; Z79.899 Other long term (current) drug therapy
CPT/HCPCS: 36415; 80048; 82948; 85025; 85610; 99284

== ENCOUNTER 2020-04-09 10:44 | Outpatient (CLI) | payer MEDICARE, BC ==
[2020-04-09] MEDS ORDERED: LIDOcaine 2% 5ml jelly ONE (11:21)
== END 2020-04-09 12:37 | disposition home or self-care (01) ==
LOC: WOUND CARE 10:44
PROVIDERS: ATTEND Nurse Practitioner
DX: T87.89 Other complications of amputation stump (principal); E11.621 Type 2 diabetes mellitus with foot ulcer; L97.512 Non-pressure chronic ulcer of other part of right foot with fat layer exposed; E11.51 Type 2 diabetes mellitus with diabetic peripheral angiopathy without gangrene; I25.2 Old myocardial infarction; E11.69 Type 2 diabetes mellitus with other specified complication; M86.8X7 Other osteomyelitis, ankle and foot; E11.42 Type 2 diabetes mellitus with diabetic polyneuropathy; E11.22 Type 2 diabetes mellitus with diabetic chronic kidney disease; I12.0 Hypertensive chronic kidney disease with stage 5 chronic kidney disease or end stage renal disease; N18.6 End stage renal disease; G89.29 Other chronic pain; I25.10 Atherosclerotic heart disease of native coronary artery without angina pectoris; M54.9 Dorsalgia, unspecified; E78.5 Hyperlipidemia, unspecified; N25.81 Secondary hyperparathyroidism of renal origin; Z86.73 Personal history of transient ischemic attack (TIA), and cerebral infarction without residual deficits; Z95.1 Presence of aortocoronary bypass graft; Z99.2 Dependence on renal dialysis; Z79.4 Long term (current) use of insulin; Z79.82 Long term (current) use of aspirin; Z79.899 Other long term (current) drug therapy; Z79.890 Hormone replacement therapy; Z86.2 Personal history of diseases of the blood and blood-forming organs and certain disorders involving the immune mechanism; Z79.01 Long term (current) use of anticoagulants; Z79.51 Long term (current) use of inhaled steroids; Z79.1 Long term (current) use of non-steroidal anti-inflammatories (NSAID); Z87.891 Personal history of nicotine dependence; Z98.61 Coronary angioplasty status; Y83.5 Amputation of limb(s) as the cause of abnormal reaction of the patient, or of later complication, without mention of misadventure at the time of the procedure
CPT/HCPCS: 36416; 82948; 97597; 97598

== ENCOUNTER 2020-04-16 10:25 | Outpatient (CLI) | payer BC ==
[2020-04-16] MEDS ORDERED: LIDOcaine 2% 5ml jelly ONE (11:23)
== END 2020-04-16 13:47 | disposition home or self-care (01) ==
LOC: WOUND CARE 10:25
PROVIDERS: ATTEND Nurse Practitioner
DX: T87.89 Other complications of amputation stump (principal); E11.621 Type 2 diabetes mellitus with foot ulcer; L97.512 Non-pressure chronic ulcer of other part of right foot with fat layer exposed; E11.51 Type 2 diabetes mellitus with diabetic peripheral angiopathy without gangrene; I25.2 Old myocardial infarction; E11.69 Type 2 diabetes mellitus with other specified complication; M86.8X7 Other osteomyelitis, ankle and foot; E11.42 Type 2 diabetes mellitus with diabetic polyneuropathy; E11.22 Type 2 diabetes mellitus with diabetic chronic kidney disease; I12.0 Hypertensive chronic kidney disease with stage 5 chronic kidney disease or end stage renal disease; N18.6 End stage renal disease; G89.29 Other chronic pain; I25.10 Atherosclerotic heart disease of native coronary artery without angina pectoris; M54.9 Dorsalgia, unspecified; E78.5 Hyperlipidemia, unspecified; N25.81 Secondary hyperparathyroidism of renal origin; Z86.73 Personal history of transient ischemic attack (TIA), and cerebral infarction without residual deficits; Z95.1 Presence of aortocoronary bypass graft; Z99.2 Dependence on renal dialysis; Z79.4 Long term (current) use of insulin; Z79.82 Long term (current) use of aspirin; Z79.899 Other long term (current) drug therapy; Z79.890 Hormone replacement therapy; Z86.2 Personal history of diseases of the blood and blood-forming organs and certain disorders involving the immune mechanism; Z79.01 Long term (current) use of anticoagulants; Z79.51 Long term (current) use of inhaled steroids; Z79.1 Long term (current) use of non-steroidal anti-inflammatories (NSAID); Z87.891 Personal history of nicotine dependence; Z98.61 Coronary angioplasty status; Y83.5 Amputation of limb(s) as the cause of abnormal reaction of the patient, or of later complication, without mention of misadventure at the time of the procedure
CPT/HCPCS: 36416; 82948; 97597; 97598

== ENCOUNTER 2020-04-23 08:35 | Day surgery (SDC) | payer BC | END 2020-04-23 09:53 | disposition home or self-care (01) | LOC: WOUND CARE 08:35 | PROVIDERS: ATTEND Nurse Practitioner | DX: T87.89 Other complications of amputation stump (principal); E11.621 Type 2 diabetes mellitus with foot ulcer; L97.512 Non-pressure chronic ulcer of other part of right foot with fat layer exposed; E11.51 Type 2 diabetes mellitus with diabetic peripheral angiopathy without gangrene; I25.2 Old myocardial infarction; E11.69 Type 2 diabetes mellitus with other specified complication; M86.8X7 Other osteomyelitis, ankle and foot; E11.42 Type 2 diabetes mellitus with diabetic polyneuropathy; E11.22 Type 2 diabetes mellitus with diabetic chronic kidney disease; I12.0 Hypertensive chronic kidney disease with stage 5 chronic kidney disease or end stage renal disease; N18.6 End stage renal disease; G89.29 Other chronic pain; J44.9 Chronic obstructive pulmonary disease, unspecified; I25.10 Atherosclerotic heart disease of native coronary artery without angina pectoris; M54.9 Dorsalgia, unspecified; E78.5 Hyperlipidemia, unspecified; N25.81 Secondary hyperparathyroidism of renal origin; Z86.73 Personal history of transient ischemic attack (TIA), and cerebral infarction without residual deficits; Z95.1 Presence of aortocoronary bypass graft; Z99.2 Dependence on renal dialysis; Z79.4 Long term (current) use of insulin; Z79.82 Long term (current) use of aspirin; Z79.899 Other long term (current) drug therapy; Z79.890 Hormone replacement therapy; Z86.2 Personal history of diseases of the blood and blood-forming organs and certain disorders involving the immune mechanism; Z79.01 Long term (current) use of anticoagulants; Z79.51 Long term (current) use of inhaled steroids; Z79.1 Long term (current) use of non-steroidal anti-inflammatories (NSAID); Z87.891 Personal history of nicotine dependence; Z98.61 Coronary angioplasty status; Y83.5 Amputation of limb(s) as the cause of abnormal reaction of the patient, or of later complication, without mention of misadventure at the time of the procedure | CPT/HCPCS: 82948; 87070; 87075; 87077; 87102; 87186; 97597; 97598 ==

== ENCOUNTER 2020-06-01 10:28 | Emergency (ER) | payer BC, MEDICARE ==
[~2020-06-01] VITALS: Ht 177.8 cm; Wt 90.0 kg
[~2020-06-01 10:28] MED LIST changes: -ALBU2.5V10 IH; +ALBU8HFA PO; -AMLO-101 PO; +AMLO1CAP19 PO; -ASPI-611 PO; -CALC667C5 PO; +CALC667T6 PO; +CARV12.549 PO; -CARV25TA PO; +CITA10TA14 PO; -CLOP75TA33 PO; +CLOP75TA35 PO; +FENO145T25 PO; -FENO145T38 PO; +FLUT100D2 INH; -FLUT12AE9 IH; -FURO-150 PO; +HYDR-3973 PO; -HYDR-4353 PO; -INSU100I31 SQ; -LIDO700A47 TD; -OMEG10006 PO; +PANT40TA54 PO; +PIPE3.3739 IV; +SIMV-45 PO; -SIMV40TA PO; +TRAZ-251 PO; +VANC1PLA9 IV
[2020-06-01] MEDS ORDERED: furosemide 10 MG/1 ML 10ml inj IV ONE (11:00)
[2020-06-01 11:09] LABS: BASOPHILS % (AUTO) 0.3 % (0-1); EOSINOPHILS # (AUTO) 0.1 X10'3 (0-0.9); EOSINOPHILS % (AUTO) 0.8 % (0-6); HEMATOCRIT 26.6 % (42.0-52.0); HEMOGLOBIN 8.9 g/dl (14.0-17.9); LYMPHOCYTES # (AUTO) 0.2 X10'3 (1.1-4.8); LYMPHOCYTES % (AUTO) 2.8 % (21-51); MEAN CORPUSCULAR HEMOGLOBIN 32.2 PG (27.0-31.0); MEAN CORPUSCULAR HGB CONC 33.5 g/dL (33.0-36.5); MEAN CORPUSCULAR VOLUME 96.1 FL (78-98); MONOCYTES # (AUTO) 0.4 X10'3 (0-0.9); MONOCYTES % (AUTO) 5.2 % (2-12); NEUTROPHILS # (AUTO) 7.7 X10'3 (1.8-7.7); NEUTROPHILS % (AUTO) 90.9 % (42-75); PLATELET COUNT 338 X10'3 (140-440); RED BLOOD COUNT 2.76 X10'6 (4.70-6.10); RED CELL DISTRIBUTION WIDTH 19.7 % (11.5-14.5); WHITE BLOOD COUNT 8.5 X10'3 (4.5-11.0)
[2020-06-01 11:29] LABS: ALANINE AMINOTRANSFERASE 20 U/L (12-78); ALKALINE PHOSPHATASE 30 IU/L (46-116); ANION GAP 4 (8-16); ASPARTATE AMINO TRANSFERASE 12 U/L (10-37); BILIRUBIN,TOTAL 0.5 MG/DL (0.1-1.0); BLOOD UREA NITROGEN 42 MG/DL (7-18); CHLORIDE 97 MMOL/L (99-107); CREATININE 5.25 MG/DL (0.60-1.10); GLUCOSE 152 MG/DL (70-104); POTASSIUM 4.8 MMOL/L (3.5-5.1); SODIUM 130 MMOL/L (135-145); TOTAL PROTEIN 5.6 G/DL (6.4-8.2); eGFR 11 ML/MIN
[2020-06-01 11:36] LABS: ANISOCYTOSIS 2+; PLATELET ESTIMATE NORMAL
[2020-06-01 11:37] LABS: ALBUMIN 2.2 G/DL (3.4-5.0); ALBUMIN/GLOBULIN RATIO 0.6 (1.1-1.5)
--- NOTE | 2020-06-01 11:41 | NUR ---
Repositioned patient into position of comfort
[2020-06-01] MEDS ORDERED: iohexol 350MG/ML 100ml bottle IV ONE (12:07)
[2020-06-01] MEDS ORDERED: methylPREDNISolone sod succ 125mg/2ml vial IV ONE (13:00)
[2020-06-01] MEDS ORDERED: diphenhydrAMINE 50 mg/ml inj IV ONE (13:00)
[2020-06-01 15:42] VITALS: BP 136/60
== END 2020-06-01 15:50 | disposition home or self-care (01) ==
LOC: ER 10:29
DX: J96.20 Acute and chronic respiratory failure, unspecified whether with hypoxia or hypercapnia (principal); J90 Pleural effusion, not elsewhere classified; Z20.828 Contact with and (suspected) exposure to other viral communicable diseases; I25.10 Atherosclerotic heart disease of native coronary artery without angina pectoris; I12.0 Hypertensive chronic kidney disease with stage 5 chronic kidney disease or end stage renal disease; E11.22 Type 2 diabetes mellitus with diabetic chronic kidney disease; N18.6 End stage renal disease; I25.2 Old myocardial infarction; G89.29 Other chronic pain; Z86.73 Personal history of transient ischemic attack (TIA), and cerebral infarction without residual deficits; Z99.2 Dependence on renal dialysis; Z86.2 Personal history of diseases of the blood and blood-forming organs and certain disorders involving the immune mechanism; Z98.890 Other specified postprocedural states; Z88.8 Allergy status to other drugs, medicaments and biological substances; Z79.899 Other long term (current) drug therapy
CPT/HCPCS: 36415; 71045; 71275; 80053; 83880; 84484; 85025; 85610; 87635; 93005; 96374; 96375; 99285; C9803; J1200; J1940; J2930; Q9967; 85008